=== PATIENT | male | born 1940 | race Caucasian/White ===

== ENCOUNTER → 2016-10-19 | Outpatient (CLI) | payer OTHER ==
[~2016-10-19] MED LIST: ASPIRIN LOW DOS81 MG PO; AUGMENTIN 875 M1 TAB PO; CARTIA XT180 MG PO; CLARITIN10 MG PO; CRESTOR20 M1 PO; FENOFIBRATE MI134 MG PO; LISINOPRIL-HYDR1 TA3 PO; PANTOPRAZOLE SO40 MG PO; XANAX0.25 MG PO
--- NOTE | ~2016-10-19 | ST ---
[place], [place] EXERCISE STRESS TEST REPORT NAME: CHARLA ROJAS SR UNIT #: [id number] ROOM: DOCTOR: ALCON BARAJAS MD BIRTHDATE: [birth year] DOS: 10/19/2016 PHARMACOLOGICAL NUCLEAR STRESS TEST SUBJECTIVE: The patient is 76 years old white male, height 67 inches, weight 239. CLINICAL DIAGNOSIS: Substernal chest pain. INDICATION FOR TEST: Substernal chest pain. RESULTS: Heart rate is 70, blood pressure is 152/90, and 95% oxygen saturation at room air. EKG shows sinus rhythm with incomplete right bundle-branch block pattern. The 0.4 mg of Lexiscan was infused and then nuclear injection was made at 40 seconds and the patient was observed for 3 minutes in recovery phase. His heart rate and blood pressure response was physiological. The patient tolerated Lexiscan infusion very well except brief symptoms of "weird feeling." As far as EKG is concerned, no abnormal or acute ST-T wave changes seen compared to baseline and the patient did not experience any cardiopulmonary symptoms. From EKG point of view, this is a negative study and final impression pending nuclear images. ALCON BARAJAS MD CM:STRESS:EXERCISE STRESS TEST REPORT [id number] ALCON BAARJAS MD
--- NOTE | ~2016-10-19 | ST ---
[place], [place] EXERCISE STRESS TEST REPORT NAME: CHARLA ROJAS SR UNIT #: [id number] ROOM: DOCTOR: ALCON BARAJAS MD BIRTHDATE: [birth year] CM:STRESS:EXERCISE STRESS TEST REPORT [id number] ALCON BARAJAS MD
== END | disposition home or self-care (01) ==
LOC: CARD 06:52
DX: R07.89 Other chest pain (principal); R53.81 Other malaise

== ENCOUNTER 2016-11-09 02:28 | Emergency (ER) | payer OTHER ==
[~2016-11-09] VITALS: Ht 180.3 cm; Wt 103.4 kg
[2016-11-09 02:45] LABS: BASO % 0.4 % (0.0-1.0); EOS # 0.3 10*3/uL (0.0-0.4); HEMATOCRIT 36.2 % (42.0-52.0); HEMOGLOBIN 12.3 g/dl (14.0-18.0); IG # 0.1 10*3/uL (0.0-0.1); LYMPH # 2.3 10*3/uL (1.3-4.4); LYMPH % 29.1 % (27.0-41.0); MEAN CELL VOLUME 88.7 fl (80.0-94.0); MEAN CORPUSCULAR HGB 30.1 pg (27.0-31.0); MEAN PLATELET VOLUME 8.9 fl (9.6-12.3); MONO # 0.7 10*3/uL (0.1-1.0); MONO % 8.7 % (3.0-9.0); NEUT # 4.4 10*3/uL (2.3-7.9); NEUT % 56.9 % (47.0-73.0); PLATELET COUNT AUTOMATED 269 10*3/uL (130-400); RED BLOOD COUNT 4.08 10*6/uL (4.50-5.90); RED CELL DISTRI WIDTH 12.5 % (0-14.5); WHITE BLOOD COUNT 7.7 10*3/uL (4.8-10.8)
[2016-11-09] MEDS ORDERED: IMDUR SA30 MG PO (02:53)
[2016-11-09] MEDS ORDERED: Lopressor25 MG PO (02:54)
[2016-11-09 02:55] LABS: PROTHROMBIN TIME 10.9 SECONDS (9.0-12.4)
[2016-11-09 03:03] LABS: ALBUMIN 3.7 gm/dl (3.1-4.5); BILIRUBIN, TOTAL 0.4 mg/dl (0.2-1.0); TOTAL PROTEIN 7.3 gm/dL (6.4-8.2)
[2016-11-09 03:04] LABS: TROPONIN I 0.05 ng/ml (<0.045)
== END 2016-11-09 06:14 | disposition short-term general hospital (02) ==
LOC: ED 02:28
PROVIDERS: Emergency Medicine Emergency Medical Services
DX: R07.89 Other chest pain (principal); R79.89 Other specified abnormal findings of blood chemistry; I10 Essential (primary) hypertension; E78.00 Pure hypercholesterolemia, unspecified; K21.9 Gastro-esophageal reflux disease without esophagitis; I25.10 Atherosclerotic heart disease of native coronary artery without angina pectoris; Z95.5 Presence of coronary angioplasty implant and graft; Z79.899 Other long term (current) drug therapy; Z79.82 Long term (current) use of aspirin

== ENCOUNTER → 2016-12-18 | Outpatient (CLI) | payer OTHER ==
[~2016-12-18] MED LIST changes: +IMDUR SA30 MG PO; +Lopressor25 MG PO
[2016-12-18 08:40] LABS: ALBUMIN 3.5 gm/dl (3.1-4.5); ALKALINE PHOSPHATASE 48 U/L (45-117); BILIRUBIN, TOTAL 0.4 mg/dl (0.2-1.0); BUN 20 mg/dl (7-24); CARBON DIOXIDE 27 mmol/L (21-32); CHLORIDE 108 mmol/L (98-107); EST GLOM FILT AFRICAN AMERICAN > 60 ml/min; GLUCOSE 101 mg/dL (65-99); POTASSIUM 4.4 mmol/L (3.5-5.1); SGOT/AST 22 IU/L (3-35); SGPT/ALT 22 U/L (12-78); SODIUM 140 mmol/L (136-145); TOTAL PROTEIN 7.4 gm/dL (6.4-8.2)
== END | disposition home or self-care (01) ==
LOC: LAB 07:51
DX: I25.10 Atherosclerotic heart disease of native coronary artery without angina pectoris (principal); E78.5 Hyperlipidemia, unspecified

== ENCOUNTER → 2017-02-12 | Outpatient (CLI) | payer OTHER ==
[2017-02-12 08:21] LABS: ALBUMIN 3.5 gm/dl (3.1-4.5); SGPT/ALT 16 U/L (12-78)
[2017-02-12 08:24] LABS: ALKALINE PHOSPHATASE 72 U/L (45-117); BILIRUBIN, DIRECT < 0.1 mg/dL (0.0-0.2); CHOLESTEROL 168 mg/dL (<200); HDL CHOLESTEROL 47 mg/dl (40-60); LDL CHOLESTEROL 85 mg/dL (9-159); SGOT/AST 20 IU/L (3-35); TOTAL PROTEIN 7.4 gm/dL (6.4-8.2); TRIGLYCERIDES 181 mg/dl (<150); VLDL CHOLESTEROL 36 mg/dL (6-40)
== END | disposition home or self-care (01) ==
LOC: LAB 06:58
PROVIDERS: Nurse Practitioner Family
DX: I25.10 Atherosclerotic heart disease of native coronary artery without angina pectoris (principal); E78.5 Hyperlipidemia, unspecified

== ENCOUNTER → 2019-12-26 | Outpatient (CLI) | payer OTHER ==
[~2019-12-26] MED LIST changes: -CRESTOR20 M1 PO; +CRESTOR40 M1 PO; +NITROSTAT0.4 MG SL; +PLAVIX75 M1 PO; +VITAMIN B12 IM; +VITAMIN D3125 MCG PO
--- NOTE | 2019-12-26 09:15 | NUR ---
INFORMED CONSENT OBTAINED FOR LEXISCAN NUCLEAR STRESS TEST WITH DR. MCRAE. RESTING EKG NSR WITH RARE PVC WITH A RESTING HR OF 70 WITH BP OF 132/76. LUNGS CLEAR WITH SPO2 OF 96% ON ROOM AIR. PT COMPLETED A 1:00 LEXISCAN PROTOCOL RECEIVING LEXISCAN 0.4 MG IV OVER 10 SECONDS. HAD NO CHEST PAIN OR ANY EKG UNTIL END OF 3:00 RECOVERY. AT THAT TIME DID C/O CENTRAL CHEST DISCOMFORT AND PT STATES, "IT'S THE SAME I GET." DISCOMFORT 4 ON PAIN SCALE. DEVELOPED NONDIAGNOSTIC ST DEPRESSION IN LEADS II,III,AVF AND V3-V4. HAD A PEAK HR OF 111 WITH BP OF 132/70. IN RECOVERY CHEST DISCOMFORT EASING AND RELIEVED. DR. MCRAE EXPLAINED TO PT TO STAY AFTER COMPLETION OF SCANNING FOR RESULTS. LAST RECOVERY HR OF 101 WITH BP OF 140/80. AWAITING SCANNING IN STABLE CONDITION.
--- NOTE | 2019-12-26 11:30 | NUR ---
DR. MCRAE DISCUSSED RESULTS WITH PATIENT. PT INSTRUCTED TO CALL CUSTOMER RELATIONS REPRESENTATIVE TODAY FOR APPOINTMENT AND RESULTS FAXED TO DR. WADE AND DR. BARAJAS. EXPLAINED TO LIMIT PHYSICAL ACTIVITY AND CALLING 911 IF DEVELOPS CHEST PAIN. DR. MCRAE TALKED WITH DR. BARAJAS. IV DISCONTINUED AND DISCHARGED IN STABLE CONDITION.
== END | disposition home or self-care (01) ==
LOC: CARD 00:18
DX: I25.9 Chronic ischemic heart disease, unspecified (principal)